=== PATIENT | male | born 1980 | race Two or more races ===

== ENCOUNTER 2016-10-24 19:22 | Emergency (ER) | payer SELFPAY ==
[~2016-10-24] VITALS: Ht 170.2 cm; Wt 89.4 kg
[2016-10-24 19:35] VITALS: BP 136/81
[2016-10-24] MEDS ORDERED: NAPR500T PO (20:02)
[2016-10-24] MEDS ORDERED: TRAM50TA PO (20:02)
--- NOTE | 2016-10-24 20:03 | PHYS DOC ---
Past Medical History Past Medical History: No Pertinent History Past Surgical History: Appendectomy Alcohol Use: None Drug Use: None Adult General Chief Complaint Chief Complaint: SHOULDER INJURY HPI HPI Patient is a 36 year old male presents to the emergency department with complaints of right shoulder pain. Patient is Persian-speaking declines use of the naturopathic oncology provider line and uses his family as the naturopathic oncology provider. Patient reports that one week ago he was lifting a bucket at his job when he felt a pop in the right shoulder he's had discomfort since that time. He states he has not lost range of motion but does have pain with range of motion therefore is limiting the range of motion of the extremity. There is no radiation of pain. Review of Systems Review of Systems Musculoskeletal: Right shoulder pain Allergies Allergies Allergies Coded Allergies Type Severity Reaction Last Updated Verified No Known Drug Allergies 09/28/13 No Physical Exam Physical Exam Constitutional: Well developed, well nourished, no acute distress, non-toxic appearance. [] Neck: Normal range of motion, no tenderness, supple, no stridor. [] Cardiovascular:Heart rate regular rhythm, no murmur [] Lungs & Thorax: Bilateral breath sounds clear to auscultation [] Skin: Warm, dry, no erythema, no rash. [] Back: No tenderness, no CVA tenderness. [] Extremities: Exam of the right upper extremity, mild tenderness over right trapezius, tender to palpate over the anterior shoulder. There is no swelling, no crepitus, no laxity. He will allow for range of motion, both active and passive, but does complain of is increased pain with abduction. Right elbow exam unremarkable. Neurovascular intact distally. Neurologic: Alert and oriented X 3, normal motor function, normal sensory function, no focal deficits noted. [] Current Patient Data Vital Signs Vital Signs Date Time Temp Pulse Resp B/P (MAP) Pulse Ox O2 Delivery O2 Flow Rate FiO2 10/24/16 19:35 98.0 80 16 97 Room Air 98.0 EKG EKG [] Radiology/Procedures Radiology/Procedures [] Course & Med Decision Making Course & Med Decision Making Pertinent Labs and Imaging studies reviewed. (See chart for details) [] Patient will be referred to orthopedics for further evaluation of the shoulder. He is placed in a sling. He and his family member verbalize understanding and agreement with plan. Maxine Disclaimer Dragon Disclaimer This electronic medical record was generated, in whole or in part, using a voice recognition dictation system. Departure Departure Impression: Primary Impression: Right shoulder strain Disposition: 01 HOME, SELF-CARE Condition: STABLE Referrals: NO PCP (PCP) Patient Instructions: Arm Sling Use-Brief, Shoulder Pain Scripts Tramadol Hcl (TRAMADOL HCL) 50 Mg Tablet 1 TAB PO PRN Q6HRS, #20 TAB Prov: SUSANA BASURTO APRN 10/24/16 Naproxen (NAPROSYN) 500 Mg Tablet 500 MG PO BID, #20 TAB Prov: SUSANA BASURTO APRN 10/24/16 SUSANA BASURTO APRN Oct 24, 2016 20:03
[2016-10-24] MEDS ORDERED: NAPROXEN 500 MG TABLET PO ONE (20:15)
== END 2016-10-24 20:45 | disposition home or self-care (01) ==
LOC: ER 19:22
DX: S46.911A Strain of unspecified muscle, fascia and tendon at shoulder and upper arm level, right arm, initial encounter (principal); X50.9XXA Other and unspecified overexertion or strenuous movements or postures, initial encounter; Y93.89 Activity, other specified; Y99.8 Other external cause status; Y92.89 Other specified places as the place of occurrence of the external cause
CPT/HCPCS: 99283

== ENCOUNTER 2017-06-09 13:34 | Emergency (ER) | payer SELFPAY ==
[2017-06-09 13:59] LABS: ADD MAN DIFF? NO
[2017-06-09 14:00] LABS: AGAP ISTAT 21 mmol/L (6-14); BUN ISTAT 18 mg/dL (8-26); CHLORIDE ISTAT 106 mmol/L (98-110); CREATININE ISTAT 1.1 mg/dL (0.5-1.4); GLUCOSE ISTAT 117 mg/dL (70-99); HEMATOCRIT ISTAT 41 % (37-52); HEMOGLOBIN ISTAT 13.9 g/dL (14-18); ION CA ISTAT 1.15 mmol/L (1.13-1.32); POTASSIUM ISTAT 3.5 mmol/L (3.5-5.0); SODIUM ISTAT 144 mmol/L (135-145); TOT CO2 ISTAT 21 mmol/L (23-32)
[2017-06-09 14:05] LABS: BASO # 0.1 x10^3/uL (0.0-0.2); BASO % 1 % (0-3); EOS % 0 % (0-3); HEMATOCRIT 43.1 % (39.0-53.0); HEMOGLOBIN 14.5 g/dL (13.0-17.5); LYMPH # 1.3 x10^3/uL (1.0-4.8); LYMPH % 14 % (24-48); MEAN CORPUSCULAR HEMOGLOBIN 29 pg (25-35); MEAN CORPUSCULAR HGB CONC 34 g/dL (31-37); MEAN CORPUSCULAR VOLUME 88 fL (79-100); MONO # 0.4 x10^3/uL (0.0-1.1); MONO % 5 % (0-9); NEUT # 7.3 x10^3uL (1.8-7.7); NEUT % 80 % (31-73); PLATELET COUNT 234 x10^3/uL (140-400); RED BLOOD COUNT 4.92 x10^6/uL (4.30-5.70); RED CELL DISTRIBUTION WIDTH 12.9 % (11.5-14.5); WHITE BLOOD COUNT 9.1 x10^3/uL (4.0-11.0)
[2017-06-09 14:14] LABS: ANION GAP 12 (6-14); BLOOD UREA NITROGEN 17 mg/dL (8-26); BUN/CREATININE RATIO 17 (6-20); CALCIUM 8.2 mg/dL (8.5-10.1); CARBON DIOXIDE 25 mmol/L (21-32); CHLORIDE 106 mmol/L (98-107); GFR 84.5; GLUCOSE 119 mg/dL (70-99); POTASSIUM 3.5 mmol/L (3.5-5.1); SODIUM 143 mmol/L (136-145)
[2017-06-09] MEDS ORDERED: IOHEXOL 300 MG/ML 100ML VIAL. IV (14:15)
[2017-06-09 14:22] LABS: ALBUMIN/GLOBULIN RATIO 1.1 (1.0-1.7); ALK PHOS 77 U/L (46-116); ALT (SGPT) 30 U/L (16-63); AST (SGOT) 20 U/L (15-37); TOTAL BILIRUBIN 0.3 mg/dL (0.2-1.0); TOTAL PROTEIN 7.5 g/dL (6.4-8.2)
[2017-06-09] MEDS: TETANUS AND DIPHTHERIA TOX/PF 0.5 ML DISP.SYRIN. VAX IM (14:22)
[2017-06-09] MEDS ORDERED: FAMOTIDINE 20 MG/2 ML VIAL (14:30)
[2017-06-09] MEDS ORDERED: ONDANSETRON PF 4 MG/2 ML VIAL. (14:30)
[2017-06-09] MEDS ORDERED: ROCURONIUM 100 MG/10 ML VIAL. (14:30)
[2017-06-09] MEDS ORDERED: PROPOFOL 20 ML IV (14:30)
[2017-06-09] MEDS ORDERED: fentaNYL PF VIAL 100 MCG/2 ML VIAL (14:30)
[2017-06-09] MEDS ORDERED: LIDOCAINE 1% PF 5 ML VIAL. (14:31)
[2017-06-09] MEDS: MORPHINE SULFATE 2 MG/ML DISP.SYRIN. IV ×3 (14:33→17:54)
[2017-06-09] MEDS ORDERED: IV RINGERS,LACTATED 1000ML 1,000 ML IV (14:34)
[2017-06-09] MEDS ORDERED: PROCHLORPERAZINE 10 MG/2 ML VIAL. IV (14:45)
[2017-06-09] MEDS ORDERED: fentaNYL PF VIAL 100 MCG/2 ML VIAL IV (14:45)
[2017-06-09] MEDS ORDERED: ONDANSETRON PF 4 MG/2 ML VIAL. IV (14:45)
[2017-06-09] MEDS ORDERED: LIDOCAINE 1% PF 2 ML VIAL. ID (14:45)
[2017-06-09] MEDS ORDERED: HYDROmorphone 2 MG/ML VIAL IV (14:45)
[2017-06-09] MEDS: fentaNYL PF VIAL 100 MCG/2 ML VIAL IV ×3 (14:49→17:05)
[2017-06-09] MEDS ORDERED: SUCCINYLCHOLINE 200 MG/10 ML VIAL. (14:59)
[2017-06-09] MEDS ORDERED: PAPAVERINE 60 MG/2 ML VIAL FOR OR ONLY. (15:07)
[2017-06-09] MEDS ORDERED: GELATIN MUCOSAL POWDER. (15:07)
[2017-06-09] MEDS ORDERED: IOHEXOL 300 MG/ML 100ML VIAL. (15:07)
[2017-06-09] MEDS ORDERED: THROMBIN TOPICAL 20,000 UNIT SPRAY.SYRN KIT TP (15:07)
[2017-06-09] MEDS: BUPIVACAINE MPF 0.25% 30 ML VIAL. (15:46)
[2017-06-09] MEDS: LIDOCAINE 1% ID (15:46)
[2017-06-09] MEDS: HEPARIN SODIUM 5,000 UNIT in IV NORMAL SALINE 500ML BAG 500 ML IRR (15:46)
[2017-06-09] MEDS: TOTAL VOLUME ID (15:46)
[2017-06-09] MEDS: SODIUM BICARBONATE ID (15:46)
[2017-06-09] MEDS ORDERED: ESMOLOL 100 MG/10 ML VIAL. IV (16:08)
[2017-06-09] MEDS ORDERED: DEXAMETHASONE SOD PHOS 20 MG/5 ML VIAL. (16:08)
[2017-06-09] MEDS ORDERED: SEVOFLURANE 31 TO 60 MINUTES. IH (16:13)
[2017-06-09] MEDS ORDERED: MORPHINE SULFATE 4 MG/ML DISP.SYRIN. (17:37)
[2017-06-09] MEDS: HYDROcodone/APAP 5/325MG 1 TAB TABLET PO (17:51)
[2017-06-09] MEDS ORDERED: PROCHLORPERAZINE 10 MG/2 ML VIAL. (18:07)
[2017-06-09] MEDS: PROCHLORPERAZINE 10 MG/2 ML VIAL. IV (18:35)
== END 2017-06-09 15:05 | disposition other institution (70) ==
LOC: ER 13:34
DX: S81.012A Laceration without foreign body, left knee, initial encounter (principal); W26.8XXA Contact with other sharp object(s), not elsewhere classified, initial encounter; Y93.89 Activity, other specified; Y92.89 Other specified places as the place of occurrence of the external cause; Y99.8 Other external cause status
CPT/HCPCS: 36415; 73562; 73706; 80047; 80053; 85025; 86850; 86900; 86901; 90471; 90714; 96365; 96375; 96376; 99285-25; J0330; J0690; J0780; J1100; J1644; J2270; J2405; J2440; J2704; J3010; J3490; J7040; J7120; Q9967; S0028

== ENCOUNTER 2017-10-27 09:42 | Emergency (ER) | payer SELFPAY ==
[2017-10-27] MEDS: HYDROcodone/APAP 5/325MG 1 TAB TABLET PO (10:40)
== END 2017-10-27 12:30 | disposition home or self-care (01) ==
LOC: ER 09:42
DX: S60.131A Contusion of right middle finger with damage to nail, initial encounter (principal); F17.210 Nicotine dependence, cigarettes, uncomplicated; W22.8XXA Striking against or struck by other objects, initial encounter; Y93.89 Activity, other specified; Y92.89 Other specified places as the place of occurrence of the external cause; Y99.8 Other external cause status
CPT/HCPCS: 29130; 73140; 99284